=== PATIENT | male | born 1965 | race Caucasian/White ===

== ENCOUNTER 2016-08-03 08:09 | Day surgery (SDC) | payer BC ==
[2016-08-02 13:25] VITALS: BMI 27.0
[~2016-08-03 08:09] MED LIST: DEXAMETHASONE SOD PHOSPHATE 10 MG/ML 1 ML VIAL IV ONE; HYDROmorphone 1 MG/ML 1 ML SYRINGE IVP PRN; LACTATED RINGERS 1,000 ML IV SCH; ONDANSETRON 4 MG/2 ML VIAL IVP ONE; Pre Op ABX Message 1 EACH MISC MISCELLANE ONE
[2016-08-03 08:42] VITALS: TEMP 97.7
[2016-08-03] MEDS ORDERED: LIDOCAINE 1% 20 ML VIAL (10MG/ML) FOR IV START INTRADERMA ONE (08:57)
[2016-08-03 09:00] LABS: Glucose,Whole Blood 189 mg/dL (75-99)
[2016-08-03] MEDS ORDERED: ceFAZolin 1,000 MG VIAL ONE (10:02)
[2016-08-03] MEDS ORDERED: SODIUM CHLORIDE 0.9% 50 ML with ceFAZolin 2,000 MG IV ONE ×2 (10:02)
[2016-08-03] MEDS ORDERED: PROPOFOL 10 MG/ML 20 ML VIAL IV ONE (10:02)
[2016-08-03] MEDS ORDERED: MIDAZOLAM 2 MG/2 ML VIAL ONE (10:02)
[2016-08-03] MEDS ORDERED: KETAMINE 10 MG/ML 20 ML VIAL ONE (10:02)
[2016-08-03] MEDS ORDERED: fentaNYL (PF) 50 MCG/ML 2 ML AMP ONE (10:02)
[2016-08-03] MEDS ORDERED: BUPIVACAIN-EPI 0.25%-1:200,000 30 ML VIAL SQ ONE ×2 (10:12)
[2016-08-03 11:04] VITALS: RESP 18
[2016-08-03 11:04] LABS: Glucose,Whole Blood 185 mg/dL (75-99)
[2016-08-03 11:13] VITALS: BP 114/71; PULSE 75
--- NOTE | 2016-08-03 11:18 | P.OP ---
Date of Procedure: 08/03/16 Preoperative Diagnosis: Subcutaneous mass over the left shoulder. Postoperative Diagnosis: Large sebaceous cyst 6.5 cm x 5 cm x 5 cm Procedure(s) Performed: Excision of large sebaceous cyst Anesthesia: MAC, local Surgeon: Jayant Wilkinson Estimated Blood Loss (ml): 5 Pathology: other Condition: stable Operative Findings: large chronically inflamed sebaceous cyst Description of Procedure: EXCISION right shoulder MASS Size : 6.5 cm x 5 cm x 5 cm INDICATION FOR PROCEDURE: 50-year-old male presented with a soft tissue mass on the posterior aspect of the right shoulder. It is nonpainful but growing size for the past several months.An informed consent was obtained from the patient after explaining risks benefits and potential complications including bleeding, infection and seroma formation. He demonstrated understanding and agreed to proceed with the surgery. OPERATIVE DETAILS: The patient was brought to the operating room and placed in supine position with both arms out. IV sedation was given as per anesthesia team. Chlorhexidine was used to prep the skin followed by application of sterile drapes . A timeout was performed to verify the correct patient, correct site and correct procedure. He was confirmed to receive perioperative IV antibiotics.30 mL of 0.25% Marcaine with epinephrine was infiltrated along the proposed skin incision. Once the lines of [place]. Dickens the skin into the subcutaneous tissue after which sharp dissection was done with the help of a scissors to pull off the skin from the cyst but inadvertently puncturing it. After this cut mode cautery was used to completely excise the cyst from the surrounding tissues and this extended all the way down to the fascia. Was completely removed. It was a large cavity that was left behind. The cavity itself was thoroughly irrigated and sucked dry. The subcutis tissue was closed with a layers of 20 and 3-0 Vicryl skin was closed with 4-0 Monocryl. Dermabond was applied and pressure dressing was applied. Patient to undergo no complications he woke and was taken to recovery room in stable condition. There were no complications
== END 2016-08-03 11:42 | disposition home or self-care (01) ==
LOC: OR 08:09
PROVIDERS: ATTEND Surgery
DX: L72.8 Other follicular cysts of the skin and subcutaneous tissue (principal); E11.9 Type 2 diabetes mellitus without complications; E78.00 Pure hypercholesterolemia, unspecified; Z79.84 Long term (current) use of oral hypoglycemic drugs; Z79.1 Long term (current) use of non-steroidal anti-inflammatories (NSAID); Z87.891 Personal history of nicotine dependence
CPT/HCPCS: 88304; 23071; J2250; J1100; J2405; J0690 ×2; J3010; J2704

== ENCOUNTER → 2019-12-16 | Outpatient (CLI) | payer BC ==
--- NOTE | 2019-12-16 11:10 | ECHOF ---
Referral Reason:R01.1 cardiac murmur MEASUREMENTS -------- HEIGHT: 175.3 cm WEIGHT: 82.5 kg BP: RVIDd: 3.3 cm (< 3.3) IVSd: 1.2 cm (0.6 - 1.1) LVIDd: 4.5 cm (3.9 - 5.3) LVPWd: 1.3 cm (0.6 - 1.1) IVSs: 1.7 cm LVIDs: 2.9 cm LVPWs: 1.7 cm LA Diam: 4.1 cm (2.7 - 3.8) LAESV Index (A-L): 25.81 ml/m Ao Diam: 3.7 cm (2.0 - 3.7) AV Cusp: 2.3 cm (1.5 - 2.6) MV EXCURSION: 28.113 mm (> 18.000) MV EF SLOPE: 168 mm/s (70 - 150) EPSS: 0.5 cm MV E Juan Pablo: 0.83 m/s MV DecT: 219 ms MV A Juan Pablo: 0.81 m/s MV E/A Ratio: 1.03 FINDINGS -------- Sinus rhythm. This was a technically good study. The left ventricular size is normal. There is mild concentric left ventricular hypertrophy. Overa ll left ventricular systolic function is normal with, an EF between 60 - 65 %. The right ventricle is mildly enlarged. Normal LA size by volume 22+/-6 ml/m2. The right atrium is normal in size. Aneurysmal Interatrial septum. The aortic valve is trileaflet and appears structurally normal. There is trace to mild mitral regurgitation. The tricuspid valve appears structurally normal. There is no pulmonic regurgitation present. The aortic root size is normal. Normal inferior vena cava with normal inspiratory collapse consistent with estimated right atrial pre ssure of 5 mmHg. The inferior vena cava is mildly dilated. There is no pericardial effusion. CONCLUSIONS -------- 1. The left ventricular size is normal. 2. There is mild concentric left ventricular hypertrophy. 3. Overall left ventricular systolic function is normal with, an EF between 60 - 65 %. 4. The right ventricle is mildly enlarged. 5. Aneurysmal Interatrial septum. 6. There is trace to mild mitral regurgitation. 7. The inferior vena cava is mildly dilated. 8. There is no pericardial effusion. [employer] OFFICER: Adriana Calvillo RDCS
== END | disposition home or self-care (01) ==
LOC: RADECHMAIN 08:09
PROVIDERS: ATTEND Family Medicine
DX: I51.7 Cardiomegaly (principal); I25.3 Aneurysm of heart
CPT/HCPCS: 93306